=== PATIENT | male | born 1950 ===

== ENCOUNTER 2018-05-02 06:28 | Day surgery (SDC) | payer MEDICARE, OTHER ==
[2018-04-28 08:50] VITALS: BMI 26.9
[2018-05-02] MEDS ORDERED: Midazolam 2 MG/2 ML VIAL ONE (07:31)
[2018-05-02] MEDS ORDERED: Propofol 10 mg/ml Inj (20 ML) ONE (07:31)
[2018-05-02] MEDS ORDERED: Phenylephrine 10 mg/ml Inj ONE (07:33)
[2018-05-02] MEDS ORDERED: Rocuronium 10 mg/ml (5 ml) ONE (07:33)
[2018-05-02] MEDS ORDERED: ePHEDrine 50 mg/ml Inj ONE (07:33)
[2018-05-02] MEDS ORDERED: ceFAZolin 1 gm in NS 0 GM/0 ML BAG IVPB ONE (07:43)
[2018-05-02] MEDS ORDERED: Lidocaine/Epinephrine 1% 1:100000 10 ML IJ ONE (07:43)
[2018-05-02] MEDS ORDERED: Bupivacaine HCl 0.25% PF (30 ml) Inj ONE (08:08)
[2018-05-02] MEDS ORDERED: ceFAZolin IV 2 gm in Dextrose 2 GM/50 ML BAG IVPB ONE (08:24)
[2018-05-02] MEDS ORDERED: Neostigmine Methylsulfate 3mg/3ml Syringe IV ONE (09:19)
--- NOTE | 2018-05-02 10:46 | PCM.SURG1 ---
Surgeon's Initial Post Op Note - Surgeon's Notes Surgeon: Dr. Capone Property Underwriter: Anson Ramos Type of Anesthesia: General Endo Pre-Operative Diagnosis: Symptomatic Cholelisthiasis, Umbilical Hernia Operative Findings: See Operative Dictation Post-Operative Diagnosis: Symptomatic Cholelithiasis, Umbilical Hernia Operation Performed: Robotic Cholecystectomy, Umbilical Hernia Repair Specimen/Specimens Removed: Gallbladder, hernia fat Estimated Blood Loss: EBL {In ML}: 20 Blood Products Given: N/A Drains Used: No Drains Post-Op Condition: Good Date of Surgery/Procedure: 05/02/18 Time of Surgery/Procedure: 10:46
[2018-05-02] MEDS ORDERED: Oxycodone/Acetaminophen 5/325 mg Tab PO PRN (10:52)
--- NOTE | 2018-05-02 10:52 | CP.SDSHP ---
Same Day Surgery H & P - History Proposed Procedure: Paper H&P in chart - Allergies Allergies: Allergies No Known Allergies Allergy (Verified 07/16/17 10:57) - Physical Exam Vital Signs: Vital Signs 05/02/18 06:44 Temperature 96.7 F L Pulse Rate 71 Respiratory 20 Rate Blood Pressure 137/83 O2 Sat by Pulse 96 Oximetry Short Stay Discharge - Short Stay Discharge Admitting Diagnosis/Reason for Visit: CALCULUS OF GALLBLADDER W CHRONIC CHOLECYST W/O OB Disposition: HOME/ ROUTINE Follow-up: Followup in 10 days, call office today or tomorrow to make an appointment Instructions: Cholecystectomy (DC), Cholecystectomy, Laparoscopic Surgery Additional Instructions (Diet, Activity): You have internal stitches and absorbable skin stitches. The skin stitches are covered with surgical tape called steri strips. On top of they you have a bandage. Do not get dressings wet for 5 days. After 5 days you may shower however no saoing including bath, swimming pool or hot tub until you have been seen by Dr. Capone. After 5 days you may remove the dressing however do not remove the steri strips they will eventually fall off on their own. No heavy lifting over 20lbs for 4 weeks and nothing over 40lbs for 4 weeks after that. If you have pain take over the counter pain medication alternating between tylenol and ibeuprofen. If that is not adequate use prescription pain medication prescribed do not exceed dosing specifications on the bottle. If you develop new or worsening symptoms call you primary care doctor, Dr. Capone or go to the ED.
[2018-05-02] MEDS: HYDROmorphone 0.5 mg/0.5 ml ISec IVP PRN ×4 (10:59→12:15)
[2018-05-02] MEDS ORDERED: Lactated Ringer's 1,000 ML IV ONE (12:15)
[2018-05-02 16:37] VITALS: BP 106/58; PULSE 67; RESP 18; TEMP 97.7; O2SAT 97
--- NOTE | 2018-05-03 05:47 | OP ---
PROCEDURE DATE: 05/02/2018 PREOPERATIVE DIAGNOSES: 1. Chronic cholecystitis and cholelithiasis. 2. Umbilical hernia. POSTOPERATIVE DIAGNOSES: 1. Chronic cholecystitis and cholelithiasis. 2. Umbilical hernia. 3. Extensive postinfectious adhesion due to chronic cholecystitis. PROCEDURE DONE: 1. Robotic cholecystectomy. 2. Robotic extensive lysis of adhesion. 3. Open umbilical hernia repair without mesh. SURGEON: The procedure was done by mn Dr. Leeroy Capone. ASSISTANTS: SALONI Muñiz; and Charanjit Alcala DO. TYPE OF ANESTHESIA: General endotracheal tube anesthesia. ESTIMATED BLOOD LOSS: Around 10 mL. DRAINS: None. PATHOLOGY: Gallbladder with the gallstones sent for pathology. COMPLICATIONS: None. INTRAOPERATIVE FINDINGS: The patient had extensive postinfectious adhesion and the patient had dilated CBD, and there was extensive adhesion on the gallbladder and large stone to the Calot's triangle and extensive lysis of adhesion as well as enterolysis was done. DESCRIPTION OF PROCEDURE: On intraoperative steps, this is a 68-year-old male who was diagnosed with chronic cholecystitis and cholelithiasis and the patient was consented for the robotic cholecystectomy, possible open. The patient also mentioned to have umbilical hernia patient felt few weeks ago and the patient was also consented for the open umbilical hernia repair without mesh, brought to he OR, placed supine on the operating table. After induction of anesthesia, abdomen was prepped and draped in usual sterile fashion. A supraumbilical transverse incision was made after incising skin, subcutaneous tissue, and the fascia. The robotic port was placed. Pneumo was created. Another 3.8 mm port was placed in the upper abdomen. The robot was brought in. Camera arm as well as arm 1 and arm 2 was docked, and the gallbladder appeared to be extremely thickened, edematous, and it was adhered to the nearby colon as well as the duodenum. An extensive lysis of adhesion was done. The enterolysis was continued up to the Calot's triangle and the Calot's triangle adhesion due to the large stone on the common bile duct that was also lysed. After proper infundibular dissection and Calot's triangle dissection, the cystic duct and cystic artery was identified. The top-down approach was done. The critical view of the safety was also identified and the intraoperative Firefly was used for ductal anatomy. The cystic duct and the cystic artery were clipped at 3 places and cut in between 2 clips nearby the gallbladder. The gallbladder was dissected free from the gallbladder fossa, taken in EndoCatch bag, taken out through the umbilical port site and sent off the table for pathology. The patient also had a small umbilical hernia. After taking all the instruments out and undocking the robot and after suction-irrigation of the gallbladder fossa as well as perihepatic area, all the port was taken out. Pneumo was deflated. The umbilical port site was dissected. The umbilical hernia was identified and it was dissected with the sac and content, and it was sent off the table for pathology. The defect was closed with multiple 0 Prolene interrupted sutures. All the port sites was closed in 2 layers, subcu with a 2-0 Vicryl, skin with 4-0 Monocryl, and dry sterile dressing was applied. The patient tolerated the procedure well. Count of instrument and gauze was correct. There was no apparent complication. The patient was extubated in OR and sent to the postanesthesia care unit in stable condition. Leeroy Capone MD
== END 2018-05-02 16:10 | disposition home or self-care (01) ==
LOC: C.SDS 06:28
PROVIDERS: ATTEND Surgery Surgical Critical Care
DX: K80.10 Calculus of gallbladder with chronic cholecystitis without obstruction (principal); K82.8 Other specified diseases of gallbladder; K42.9 Umbilical hernia without obstruction or gangrene
CPT/HCPCS: 47562; 49585; 88302; 88304; J0690; J1100; J1170; J2001; J2250; J2370; J2405; J2704; J2710; J3010; J7120

== ENCOUNTER 2018-11-07 10:27 | Day surgery (SDC) | payer MEDICARE, OTHER ==
[2018-04-28 08:49] VITALS: BMI 26.9
[2018-11-07] MEDS ORDERED: Gentamicin 160 MG in Sodium Chloride 0.9% 100 ML IVPB ONE (12:21)
[2018-11-07] MEDS ORDERED: Ciprofloxacin 400mg/200ml D5W 400 MG/200 ML BAG IVPB ONE (14:27)
[2018-11-07] MEDS ORDERED: Lidocaine 2% Jelly (Uro-Jet) ONE (14:27)
[2018-11-07] MEDS ORDERED: Midazolam 2 MG/2 ML VIAL ONE (14:31)
[2018-11-07] MEDS ORDERED: Propofol 10 mg/ml Inj (20 ML) ONE (14:31)
--- NOTE | 2018-11-07 14:51 | PCM.SURG1 ---
Surgeon's Initial Post Op Note - Surgeon's Notes Surgeon: Adam Greige Goods Examiner: saw Type of Anesthesia: General LMA Anesthesia Administered By: Staff Pre-Operative Diagnosis: Hx BT Operative Findings: No evidence BT erythema blader Post-Operative Diagnosis: Erythema bladder/ro cis Operation Performed: cysto Bx fulguration Specimen/Specimens Removed: bx Estimated Blood Loss: EBL {In ML}: 0 Blood Products Given: N/A Drains Used: No Drains Post-Op Condition: Good Date of Surgery/Procedure: 11/07/18 Time of Surgery/Procedure: 14:51
[2018-11-07] MEDS ORDERED: HYDROmorphone 0.5 mg/0.5 ml ISec IVP PRN (15:07)
[2018-11-07 16:19] VITALS: RESP 18; O2SAT 99
[2018-11-07 17:34] VITALS: BP 129/64; PULSE 69; TEMP 97.6
--- NOTE | 2018-11-08 02:05 | OP ---
PROCEDURE DATE: 11/07/2018 PREOPERATIVE DIAGNOSIS: History of bladder tumor. POSTOPERATIVE DIAGNOSIS: No evidence of bladder tumor, rule out carcinoma in situ. DESCRIPTION OF THE PROCEDURE: The procedure is as follows: Prior to the procedure, the patient was asked to sign a detailed informed consent. He accepted the risks of the procedure and signed the consent. He was brought into the room. A time-out was taken according to the rules and regulations of [facility]. The patient received prophylactic antibiotics. He was draped and prepped in the usual manner and cystoscoped #[id number] Storz panendoscope. The pendulous, membranous and prosthetic urethra was normal. The bladder was entered atraumatically. There was +2 trabeculation of the bladder. No evidence of urothelial tumor or stone. There was diffuse erythema at the entire bladder. A random biopsy was taken to rule out carcinoma in situ. This biopsy area was fulgurated. The patient tolerated this procedure well. Biopsy will determine further therapy. Vaibhav Medina MD
== END 2018-11-07 17:25 | disposition home or self-care (01) ==
LOC: C.SDS 10:27
PROVIDERS: ATTEND Urology
DX: N32.89 Other specified disorders of bladder (principal); Z87.448 Personal history of other diseases of urinary system
CPT/HCPCS: 52204; 88305; J0744; J1580

== ENCOUNTER 2019-02-20 07:41 | Outpatient (CLI) | payer MEDICARE, OTHER | END 2019-02-20 07:42 | disposition home or self-care (01) | LOC: C.LAB 07:41 ==